=== PATIENT | male | born 1980 | race Caucasian/White ===

== ENCOUNTER → 2020-12-13 17:12 | Outpatient (CLI) | payer OTHER, SELFPAY ==
--- NOTE | 2020-12-13 | DI.MRI.S_ITS ---
PROCEDURE: MR CERVICAL SPINE WO CON INDICATIONS: Cervicalgia TECHNIQUE: Noncontrast sagittal T1 spin echo and T2 fast spin echo, sagittal STIR, foraminal oblique sagittal T2 fast spin echo, and axial gradient echo or T2 fast spin echo through the cervical spine. COMPARISON: None. FINDINGS: Image quality: Excellent. Alignment and Curvature: There is normal bony alignment. Bone Marrow: Marrow demonstrates normal overall signal. Spinal Cord: Visualized spinal cord has normal size and signal. No cerebellar tonsillar herniation. Paraspinous Soft Tissues: No paravertebral masses. Prevertebral soft tissues are normal in thickness. C2-C3: The disc height is well-preserved. Loss of disc signal is seen at this level. A mild degree of generalized disc osteophyte complex is seen. There is [id number] left-sided and no right-sided neural foraminal narrowing seen. No significant central canal narrowing is seen. C3-C4: The disc height is well-preserved. Loss of disc signal is seen at this level. A mild degree of generalized disc osteophyte complex is seen. There is at least moderate left-sided and mild right-sided neural foraminal narrowing seen. Mild central canal narrowing is seen. C4-C5: The disc height is well-preserved. Loss of disc signal is seen at this level. A mild degree of generalized disc osteophyte complex is seen. Mild to moderate facet hypertrophy is seen. There is moderate left-sided and minimal right-sided neural foraminal narrowing seen. Mild central canal narrowing is seen. C5-C6: Mild loss of disc height is seen. Loss of disc signal is seen. Mild disc osteophyte complex is seen, which is eccentric to the right. Mild to moderate facet is seen. There is moderate to severe right-sided at least moderate left-sided neural foraminal narrowing seen. At least moderate central canal narrowing is seen. There is associated mass effect upon the ventral spinal cord. C6-C7: The disc height is well-preserved. Loss of disc signal is seen at this level. A mild degree of generalized disc osteophyte complex is seen. Mild facet joint hypertrophy is seen. There is moderate to severe bilateral neural foraminal narrowing seen. Mild central canal narrowing is seen. C7-T1: Normal appearance. IMPRESSION: Premature cervical spine degenerative changes are seen, which are worst at C5-C6 and C6-C7. Dictated by: Oseas Mercado M.D. on 12/13/2020 at 19:31 Approved by: Oseas Mercado M.D. on 12/13/2020 at 19:35
== END ==
DX: M50.322 Other cervical disc degeneration at C5-C6 level (principal); M48.02 Spinal stenosis, cervical region
CPT/HCPCS: 72141

== ENCOUNTER → 2021-11-11 10:59 | Outpatient (CLI) | payer OTHER, SELFPAY ==
[2021-11-11 11:34] LABS: COVID19 -Nasal RAPID Negative (Negative)
== END ==
PROVIDERS: Visit Provider Specialist
DX: D40.11 Neoplasm of uncertain behavior of right testis (principal); Z20.822 Contact with and (suspected) exposure to COVID-19
CPT/HCPCS: 81002; 87635; 99215

== ENCOUNTER → 2021-11-13 06:10 | Outpatient (CLI) | payer OTHER, SELFPAY ==
--- NOTE | 2021-11-13 06:13 | DI.MRI.S_ITS ---
PROCEDURE: MR ABDOMEN PELVIS WO CON TECHNIQUE: MRI sequences of the abdomen and pelvis including at coronal and axial Haste, T1 pelvis, T2 sagittal pelvis, T2 axial and coronal pelvis, axial T1 in and out of phase imaging of the abdomen and pelvis, restricted diffusion sequences of the abdomen and pelvis. No IV contrast administered. COMPARISON: [facility], , US SCROTUM, 11/07/2021, 14:39. INDICATIONS: Disorders of the male genital organ. Additional history: Right testicular mass. FINDINGS: Lung bases: No pleural effusion. Liver: A few small T2 hyperintense cysts which have a benign appearance. Gallbladder: Not distended. Bile ducts: No dilatation. Pancreas: No peripancreatic fluid collection. Spleen: No splenomegaly. Adrenal glands: No nodule. Kidneys: No hydronephrosis. No cysts. Bowel/peritoneum: No dilated loops of bowel. No ascites. Vessels/nodes: No abdominal aortic aneurysm. No adenopathy. Pelvis: No adenopathy. No free fluid. Bladder is unremarkable. Mid mass is again seen in the right testicle. Bones: No suspicious lesion. IMPRESSION: 1. No metastatic disease demonstrated. No adenopathy. 2. Right testicular mass. Dictated by: Fredrick Rosales M.D. on 11/13/2021 at 8:47 Approved by: Fredrick Rosales M.D. on 11/13/2021 at 9:06
== END ==
PROVIDERS: PCP Student in an Organized Health Care Education/Training Program; Referring Provider Student in an Organized Health Care Education/Training Program; Visit Provider Student in an Organized Health Care Education/Training Program
DX: N50.89 Other specified disorders of the male genital organs (principal)
CPT/HCPCS: 72195

== ENCOUNTER 2021-11-14 06:13 | Day surgery (SDC) | payer OTHER, SELFPAY ==
[2021-11-14] VITALS (9 sets, daily range): BP systolic 106–118; BP diastolic 62–76; PULSE 52–65; RESP 12–16; TEMP 36.3–36.8; O2SAT 98–100; BMI 27.1
--- NOTE | 2021-11-14 | PATH_ITS ---
[facility] Accession Number: [id number] . 01 Material submitted: . testis - RIGHT TESTICLE AND CORD . 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 Please see Cancer Case Summary. . CANCER CASE SUMMARY . Specimen Specimen laterality: Right. . Tumor Tumor focality: Unifocal. Tumor size: Greatest dimension: 1.9 cm. Additional dimensions: 1.8 x 1.8 cm. . Histologic type: Seminoma. Tumor extent: Invades through tunica albuginea and perforates tunica vaginalis and invades rete testis. . Lymphovascular invasion: Present. . Margins Margin status: All margins negative for tumor. . Regional lymph nodes Regional lymph node status: Not applicable (no regional lymph nodes submitted or found. . Extranodal extension: Cannot be determined. . Distant metastasis Distant sites involved: Cannot be determined. . Pathologic stage classification (pTNM, AJCC 8th Edition): pT2 pN not assigned (no nodes submitted or found). . 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 [facility] 11/21/2021 1655 Local . 02 Comment: As part of routine software quality tester, this case was also reviewed by Dr. Aviles, who agrees with the interpretation. . 02 Electronically signed: . Sis Cullen MD, Pathologist NPI- [id number] . 01 Gross description: . The specimen is received in formalin, labeled right testicle and cord, and consists of a 42 g testicle measuring 5.0 x 3.7 x 2.8 cm, with attached spermatic cord measuring 8.7 x 1.2 cm. The tunica vaginalis is inked black. The spermatic cord is inked blue. Sectioning the testicle reveals a well-circumscribed white to pink mass measuring 1.9 x 1.8 x 1.8 cm, which loosely adheres the overlying tunica vaginalis. The mass does not grossly involve the rete testes or adjacent body of the epididymis. The mass is greater than 1.5 cm from the base of the spermatic cord, which upon sectioning is grossly unremarkable. The mass grossly abuts the tunica albuginea. The epididymis measures 6.5 x 1.2 x 0.6 cm and is grossly unremarkable. The uninvolved tunica vaginalis is not adherent to the tunica albuginea and is free of identifiable defects. The specimen is representatively submitted as follows: A1: Spermatic cord margin, en face. A2-A3: Mass, adherent tunica vaginalis and adjacent body of epididymis. A4: [employer] section of head of epididymis and base of spermatic cord. ([id number]) . The remainder of the mass is entirely submitted in cassettes A5-A11. ([id number]) /[facility] 11/19/2021 1149 Local . 02 Microscopic: . An immunohistochemistry panel is performed to further evaluate the cells of interest. The control stains show appropriate reactivity. . RESULTS: Block A2 MARIFER: Negative. CD30: Negative. D2-40: Positive. OCT3/4: Positive. CD117: Positive. . The neoplastic cells are immunopositive for D2-40, OCT3/4, and CD117, and are immunonegative for MARIFER and CD30. These findings support an interpretation of seminoma and mitigate against an embryonal carcinoma. . * This test was developed and its performance characteristics determined by [employer]. It has not been cleared or approved by the U.S. Food and Drug Administration. The FDA has determined that such clearance or approval is not necessary. This test is used for clinical purposes. It should not be regarded as investigational or for research . 02 Pathologist provided ICD-10: D40.11, C62.91 . 02 CPT . 057326, [id number], [id number] Specimen Comment: A courtesy copy of this report has been sent to [phone] Performed at: 01 [facility] [address] [place] [address] [address], [place], [place] [id number] MD Jayant Chávez MD Phone: [phone] Performed at: 02 [facility] [id number] [place] [id number] MD Alisa Aviles MD Phone: [phone]
[2021-11-14] MEDS: LACTATED RINGERS 1,000 ML 42 ML IV (07:19)
--- NOTE | 2021-11-14 07:23 | PM.PREOP ---
Pre-operative Note COVID-19 Criteria for continued procedure: Expected advancement of disease process, Possibility delay results in more complex future surgery or treatment, Continuing or worsening of significant or severe pain, Deterioration of the patient's condition or overall health, Delay expected to result in less-positive ultimate med/surg outcome and Non-surgical alternatives not available or appropriate per current SOC Interval Note History & Physical reviewed/Exam performed by Physician: Yes Changes to H&P: No
[2021-11-14] MEDS: CEFAZOLIN 2 GM/20 ML SYRINGE IV (08:05)
[2021-11-14] MEDS: BUPIVACAINE 0.5% (PF) 30 ML, EPINEPHrine 0.15 MG INJ (08:20)
--- NOTE | 2021-11-14 08:23 | SUR.OPER ---
Supine on padded OR bed, head on pillow, arms secured on padded arm boards at <90 degrees abduction, legs uncrossed, safety belt at thigh, hips positioned over break of bed and bed slightly flexed.
[2021-11-14] MEDS: BUPIVACAINE LIPOSOME 266 MG/20 ML VIAL INJ (08:52)
--- NOTE | 2021-11-14 09:16 | PM.OP.1 ---
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 Post-op diagnosis: same Procedure & Clinicians Procedure: 1. Right radical orchiectomy. Same procedure as scheduled: Yes Indications: 1. Right testicular neoplasm of uncertain behavior. Surgeon: Frankie Calero Click Yes if Unassisted: Yes Anesthesia Type: General and Local (1.33% Exparel) Operative Notes Findings: Abdominal wall layers over right inguinal canal were normal. Right spermatic cord had normal appearance. The right epididymis was palpably normal. The index mass was palpable within the substance of the right testis. Closure Type: primary Specimen(s): other (Right testicle, epididymis, and spermatic cord.) Estimated Blood Loss (mL): 2 Blood products transfused: none Procedure in detail: Patient was positioned supine was administered general anesthesia. The skin over the right inguinal canal was then infiltrated with 0.5% Marcaine with epinephrine. An oblique incision was then made through the skin and the subcutaneous tissue and dartos fascia was divided using blunt cautery technique down to the level of external oblique fascia. External oblique fascia was then incised in line with its fibers over the right inguinal canal. The spermatic cord was then carefully mobilized with its confines in the inguinal canal. A high ligation at the internal ring was then performed with a free tie of 0 Tycron and a suture ligature of 0 silk. Same technique and method was then performed just distal to the site. X pro anesthesia was then infiltrated in the proximal cord at the level of the internal ring. The cord was then transected between the suture ligatures with the cautery pen. The distal cord and testis were then mobilized and manipulated up into the surgical wound. The gubernaculum was then divided with the cautery pen. External oblique fascia was then reapproximated with running 2-0 PDS. Erika's fascia was then reapproximated using a running 2-0 Monocryl. The skin was then reapproximated using running subcuticular 4-0 Monocryl. The skin surface was then cleaned and dried. A segment of Telfa pad was then tailored to fit over the incision. Over this a medium Op site dressing was applied. Dry sterile fluffs were then applied to the right hemiscrotum the patient was fitted with an athletic supporter. He was then awakened, transferred to [facility], and transferred to recovery in stable condition. Complications: none Post-operative Condition: stable Disposition: PACU Plan for aftercare: Discharge home.
[2021-11-14] MEDS: OXYCODONE IR 5 MG TABLET PO (09:39)
== END 2021-11-14 10:08 | disposition home or self-care (01) ==
PROVIDERS: PCP Student in an Organized Health Care Education/Training Program; Referring Provider Specialist; Visit Provider Specialist
PROC: (CPT 54530; principal; 2021-11-14 07:45)
DX: C62.91 Malignant neoplasm of right testis, unspecified whether descended or undescended (principal)
CPT/HCPCS: 54530; C9290; J0171; J0690; J1100; J2405; J2704; J3010